=== PATIENT | female | born 1990 | race Caucasian/White ===

== ENCOUNTER 2020-06-19 13:12 | Emergency (ER) | payer OTHER, SELFPAY ==
[~2020-06-19] VITALS: Ht 160 cm; Wt 61.2 kg
[2020-06-19 13:14] VITALS: Ht 160 cm; Wt 61.2 kg
[2020-06-19 14:46] LABS: BASOPHIL % 0.5 % (0-2); PLATELET COUNT 267 x10^3mcL (130-400); RED CELL DISTRIBUTION WIDTH 14.4 % (11.5-14.5)
[2020-06-19 15:12] LABS: CALCIUM 9.4 mg/dL (8.5-10.1); CARBON DIOXIDE 27.6 mmol/L (21-32); CHLORIDE SERUM 103 mmol/L (98-107); CREATININE SERUM 0.9 mg/dL (0.6-1.0); GFR1 > 60 mL/min; GLUCOSE SERUM 93 mg/dL (74-106); POTASSIUM SERUM 3.8 mmol/L (3.5-5.1); SODIUM SERUM 139 mmol/L (136-145)
[2020-06-19 15:25] LABS: ALBUMIN 4.3 g/dL (3.4-5.0); ALKALINE PHOSPHATASE 47 U/L (46-116); ALT/SGPT 20 U/L (14-59); AST/SGOT 17 U/L (15-37); BILIRUBIN TOTAL 0.98 mg/dL (0.20-1.00); T4(THYROXINE) 10.4 ug/dL (4.7-13.3)
[2020-06-19 16:09] VITALS: BP 111/64
== END 2020-06-19 16:09 | disposition home or self-care (01) ==
LOC: ED 13:12
PROVIDERS: Emergency Medicine
DX: R51 Headache (principal); G47.00 Insomnia, unspecified; Z20.828 Contact with and (suspected) exposure to other viral communicable diseases
CPT/HCPCS: U0003-CS